=== PATIENT | male | born 1995 | race Caucasian/White ===

== ENCOUNTER 2021-05-07 15:33 | Emergency (ER) | payer MEDICAID, OTHER ==
--- NOTE | 2021-05-07 15:38 | EDM.PDOC ---
ED HPI GENERAL MEDICAL PROBLEM - General Stated Complaint: LAW Time Seen by Provider: 05/07/21 15:38 Source of Information: Reports: Patient, Police History Limitations: Reports: No Limitations - History of Present Illness INITIAL COMMENTS - FREE TEXT/NARRATIVE: 26-year-old male who apparently was arrested by [place] police officers and he was being transported to group home and apparently he banged his head against the Plexiglas in this caused some cuts to his forehead. The patient is brought to the emergency department now for medical evaluation and to see if he is cleared for incarceration. The patient tells me that he was upset because he was being arrested and he took out his frustrations by banging his head against the Plexiglas. He denies any suicidal ideation. He is now calm and cooperative. He does report some sharp and stinging pain in the area that he rates as a 4/10. He denies any neck pain. He had no loss of consciousness. He has had no vision problems. There was no nausea or vomiting. He does admit to drinking alcohol earlier but he is awake and alert. He is fluent in his conversation and he appears to be moving everything appropriately. This occurred on the way up from [place] in the police car just prior to arrival and around 3 PM. There are no other associated signs or symptoms. There are no other modifying factors. 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.) - Related Data Allergies Allergy/AdvReac Type Severity Reaction Status Date / Time cephalexin Allergy Anaphylactic Verified 04/19/16 07:11 Shock Home Meds: Home Meds Albuterol [IMW: Albuterol HFA] 1 - 2 puff INH Q4HR PRN #1 inhaler 04/19/16 [Rx] Cetirizine [ZyrTEC] 10 mg PO DAILY 04/19/16 [History] Prednisone [IJD: predniSONE] 40 mg PO WITHBREAKFAST #14 tab 04/19/16 [Rx] Past Medical History Respiratory History: Reports: Asthma - Past Surgical History Other Surgical History Comment: Wrist surgery Social & Family History - Tobacco Use Tobacco Use Status *Q: Current Every Day Tobacco User - Alcohol Use Alcohol Use History: Yes - Living Situation & Occupation Social History Comment: From [employer]. ED ROS GENERAL - Review of Systems Review Of Systems: See Below Constitutional: Denies: Fever, Chills HEENT: Denies: Nose Pain, Throat Pain Respiratory: Denies: Shortness of Breath, Cough Cardiovascular: Denies: Chest Pain, Lightheadedness GI/Abdominal: Denies: Nausea, Vomiting : Denies: Dysuria, Hematuria Musculoskeletal: Denies: Neck Pain, Back Pain Skin: Reports: Bruising, Wound Neurological: Denies: Dizziness, Headache Psychiatric: Reports: Anxiety. Denies: Homicidal Ideation, Suicidal Ideation Hematologic/Lymphatic: Denies: Easy Bleeding, Easy Bruising Immunologic: Reports: Other (Patient's last tetanus immunization was less than 5 years ago according to the patient.) ED EXAM, GENERAL - Physical Exam Exam: See Below Exam Limited By: No Limitations General Appearance: Alert, WD/WN, Mild Distress, Other (Nontoxic.) Eye Exam: Bilateral Eye: EOMI (There is lateral gaze nystagmus of less than 45.), Normal Inspection Ears: Normal External Exam, Hearing Grossly Normal Ear Exam: Bilateral Ear: Auricle Normal Nose: Normal Inspection, Normal Mucosa, No Blood Throat/Mouth: Normal Voice, No Airway Compromise, Other (There is no odor of alcohol on his breath.) Head: Normocephalic, Facial Tenderness (Tender over forehead with superficial lacerations 2 and some ecchymosis. The top laceration was 3.5 cm and the one below it was 1.5 cm. These are superficial and there is no crepitus or bony deformity noted.) Neck: Normal Inspection, Supple, Non-Tender, Full Range of Motion Respiratory/Chest: No Respiratory Distress, Lungs Clear, Normal Breath Sounds, No Accessory Muscle Use, Chest Non-Tender Cardiovascular: Normal Peripheral Pulses, Regular Rate, Rhythm, No Murmur GI/Abdominal: Normal Bowel Sounds, Soft, Non-Tender Back Exam: Normal Inspection, Full Range of Motion. No: Vertebral Tenderness Extremities: Normal Inspection, Normal Range of Motion, Non-Tender, No Pedal Edema, Normal Capillary Refill Neurological: Alert, Oriented, CN II-XII Intact, Normal Cognition, No Motor/Sensory Deficits Psychiatric: Normal Affect Skin Exam: Warm, Dry, Normal Color, No Rash, Wound/Incision (Lacerations as described above.) Course - Re-Assessments/Exams Free Text/Narrative Re-Assessment/Exam: 05/07/21 16:05: Patient is calm and cooperative. He tells me that his last tetanus immunization was less than 5 years ago. The wounds have been cleaned and the patient refused suturing. He was okay with Steri-Strips. Steri-Strips were applied by the nursing staff and there was good reapproximation of the wounds. He is awake and alert and normally responsive and interactive. Is not appear to have any significant head injury or any other significant injury. He does not appear to have any acute medical problem and, at this point, is medically cleared for incarceration. Departure - Departure Time of Disposition: 16:08 Disposition: DC/Tfer to Court of Law En 21 Condition: Good Clinical Impression: Forehead laceration Qualifiers: Encounter type: initial encounter Qualified Code(s): S01.81XA - Laceration without foreign body of other part of head, initial encounter Forehead contusion Qualifiers: Encounter type: initial encounter Qualified Code(s): S00.83XA - Contusion of other part of head, initial encounter - Discharge Information Instructions: Sterile Tape Wound Care, Head Injury, Adult, [id number], Laceration Care, Adult, [id number] Additional Instructions: Leave the Steri-Strips intact for the next 4-5 days. You can take Tylenol and ibuprofen as needed for pain. Back to the emergency department or vomiting, not responding or acting appropriately, signs of infection or any other concerning sign or symptom. At this point, the patient is medically cleared for incarceration.
[2021-05-07 17:37] VITALS: BP 135/74; PULSE 105
== END 2021-05-07 16:30 ==
LOC: FB.ED 15:33
DX: S01.81XA Laceration without foreign body of other part of head, initial encounter (principal); Z72.0 Tobacco use; Z88.1 Allergy status to other antibiotic agents; W26.8XXA Contact with other sharp object(s), not elsewhere classified, initial encounter
CPT/HCPCS: 99283